=== PATIENT | female | born 1945 | race Two or more races ===

== ENCOUNTER → 2023-01-17 13:05 | Outpatient (BNVA) | payer MEDICARE, SELFPAY | PROVIDERS: PCP Family Medicine; Visit Provider Student in an Organized Health Care Education/Training Program | DX: R50.9 Fever, unspecified (principal) | CPT/HCPCS: 99202 ==

== ENCOUNTER 2023-01-20 14:31 | Outpatient (REF) | payer MEDICARE, SELFPAY ==
[2023-01-20 14:59] LABS: MANUAL DIFF FLAG NO
[2023-01-20 16:05] LABS: Basophils Percent Auto 0.2 % (0-2); Eosinophils Absolute Auto 0.1 X10*3/uL (0.0-0.4); Eosinophils Percent Auto 1.6 % (0-4); Hematocrit 40.4 % (37.0-47.0); Hemoglobin 13.5 g/dl (12.0-16.0); Imm Gran Abs Auto 0.01 X10*3/uL (0.00-0.03); Imm Gran Pct Auto 0.2 % (0.0-0.4); Lymphocytes Absolute Auto 1.1 X10*3/uL (1.2-4.9); Lymphocytes Percent Auto 23.2 % (20-40); Mean Corpuscular HGB Conc 33.4 g/dl (31.0-35.0); Mean Corpuscular Hemoglobin 28.2 pg (27.0-33.0); Mean Corpuscular Volume 84.5 fL (80.0-98.0); Mean Platelet Volume 10.3 fL (9.4-12.3); Monocytes Absolute Auto 0.5 X10*3/uL (0.1-1.2); Monocytes Percent Auto 10.9 % (2-11); Neutrophils Absolute Auto 3.1 x10*3/uL (2.0-8.3); Neutrophils Percent Auto 63.9 % (45-73); Platelet Count 210 X10*3/uL (160-400); Red Blood Count 4.78 X10*6/uL (4.20-5.50); Red Cell Distribution Width 12.3 % (11.0-16.0); White Blood Count 4.9 X10*3/uL (4.8-10.8)
[2023-01-20 16:19] LABS: Estimated Average Glucose 120 mg/dL; Hemoglobin A1c % 5.8 %
[2023-01-20 16:32] LABS: Alanine Aminotransferase 23 U/L (0-31); Albumin Level 4.1 g/dL (3.5-5.0); Alkaline Phosphatase 75 U/L (39-117); Anion Gap 14 (12-20); Aspartate Amino Transferase 23 U/L (5-31); Bilirubin Total 0.7 mg/dL (0.0-1.0); Blood Urea Nitrogen 18 mg/dL (9-16); C Reactive Protein 0.23 mg/dL (< or = 0.50); Calcium 9.3 mg/dL (8.4-10.2); Carbon Dioxide 23 mmol/L (22-29); Chloride 106 mmol/L (96-108); Estimated Glomerular Filt Rate > 60; Glucose Random 83 mg/dL (60-115); Lactate Dehydrogenase 216 U/L (122-220); Potassium 4.1 mmol/L (3.3-5.1); Sodium 139 mmol/L (135-145); Total Protein 7.4 g/dL (6.5-8.0)
[2023-01-20 16:33] LABS: Troponin-I High Sensitivity 5.4 ng/L (<3.5-17.0)
[2023-01-20 16:51] LABS: Erythrocyte Sedimentation Rate 18 MM/HR (0-20)
[2023-01-20 16:59] LABS: Appearance Urine Clear; Color Urine Yellow; Glucose Urine UA Negative (Negative); Leukocyte Esterase Urine Trace (Negative); Nitrite Urine Negative (Negative); Specific Gravity - Urine <= 1.005 (1.005-1.025); UMIC TRIGGER UA YES; Urine Blood Negative (Negative); Urine Ketones Negative (Negative); Urine Protein Negative (Neg-Trace)
[2023-01-20 17:06] LABS: Bacteria Urine None Seen (None Seen); Hyaline Casts Urine 0-2 /LPF (0-2); RBC Urine 0-2 /HPF (0-2); Squamous Epithelial Cell Urine 0-2 /HPF (0-2); WBC Urine 0-5 /HPF (0-5)
[2023-01-20 17:54] LABS: Creatinine Urine 21.86 mg/dL; Total Protein Urine Random < 7 mg/dL (<12)
[2023-01-22 23:20] LABS: TS Negative Control Passed; TS Panel A 0; TS Panel B 1; TS Positive Control Passed; TSpotTB Negative (Negative)
[2023-01-23 08:18] LABS: HBsAGNum1 0.35 S/CO (0.00-0.99); Hepatitis A Antibody IgM 0.15 Index (0-0.79); Hepatitis B Core Antibody Nonreactive (Nonreactive); Hepatitis B Surface Antigen Negative (Negative); ~Hepatitis A Antibody IgM Nonreactive (Nonreactive); ~Hepatitis B Surface Antibody NONREACTIVE (Nonreactive); ~Hepatitis C Antibody Nonreactive (Nonreactive)
[2023-01-23 18:28] LABS: Prot Elec - Albumin 4.1 g/dL (3.8-4.8); Prot Elec - Alpha1 0.3 g/dL (0.2-0.3); Prot Elec - Alpha2 0.7 g/dL (0.5-0.9); Prot Elec - Beta 1 0.5 g/dL (0.4-0.6); Prot Elec - Beta 2 0.4 g/dL (0.2-0.5); Prot Elec - Gamma 1.5 g/dL (0.8-1.7); Prot Elec - Total Protein 7.5 g/dL (6.1-8.1)
[2023-01-24 16:18] LABS: IgA 222 mg/dL (70-320); IgG 1632 mg/dL (600-1540); IgM 171 mg/dL (50-300)
[2023-01-24 21:27] LABS: Anti DNA DS Antibody <1 IU/mL; Antibody to SS-A Antigen <1.0 NEG AI (<1.0 NEG); Antibody to SS-B Antigen <1.0 NEG AI (<1.0 NEG); SM/Ribonucleoprotein Ab <1.0 NEG AI (<1.0 NEG); Smith Protein <1.0 NEG AI (<1.0 NEG)
[2023-01-25 18:39] LABS: Complement C3 138 mg/dL (83-193)
[2023-01-27 04:53] LABS: Aldolase 6.5 U/L (<=8.1)
[2023-01-27 12:52] LABS: Centromere Protein A Ab <11 SI (<11); Centromere Protein B Ab <11 SI (<11); Fibrillarin Ab <11 SI (<11); PM SCL 100 Ab <11 SI (<11); PM SCL 75 Ab <11 SI (<11); RNA Polymerase III RP11 Ab <11 SI (<11); RNA Polymerase III RP155 Ab <11 SI (<11); SCL-70 Extractable Nuclear Ab <11 SI (<11); Th-To Ab <11 SI (<11); U1 SNRNP RNP 70KD <11 SI (<11); U1 SNRNP RNP A <11 SI (<11); U1 SNRNP RNP C <11 SI (<11)
[2023-01-27 13:03] LABS: DNAds, Crithidia Antibody Negative (Negative)
[2023-01-29 16:39] LABS: Cytosolic 5'nuc 1A Ab IgG <5 Units; Ej Ab <11 SI (<11); HMGCR Ab IgG <2 CU (<20); Jo-1 Ab <11 SI (<11); MDA5 Ab <11 SI (<11); Mi-2 alpha Ab <11 SI (<11); Mi-2 beta Ab <11 SI (<11); NXP-2 (MJ) Ab <11 SI (<11); Oj Ab <11 SI (<11); Pl-12 Ab <11 SI (<11); Pl-7 Ab <11 SI (<11); SRP Ab <11 SI (<11); TIF1 gamma Ab <11 SI (<11)
== END 2023-01-20 14:32 | disposition home or self-care (01) ==
LOC: HO.LAB 14:31
PROVIDERS: Visit Provider Student in an Organized Health Care Education/Training Program
DX: Z11.59 Encounter for screening for other viral diseases (principal); Z11.7 Encounter for testing for latent tuberculosis infection; M32.9 Systemic lupus erythematosus, unspecified; M34.9 Systemic sclerosis, unspecified; R73.03 Prediabetes; Z72.89 Other problems related to lifestyle
CPT/HCPCS: 36415; 80053; 81001; 82085; 82550; 82784; 83036; 83516; 83520; 83615; 84156; 84165; 84182; 84484; 85025; 85652; 86140; 86160; 86225; 86235; 86255; 86334; 86481; 86704; 86706; 86709; 86803; 87340

== ENCOUNTER 2023-05-31 14:45 | Outpatient (AMB) | payer MEDICARE, SELFPAY ==
--- NOTE | 2023-05-31 14:50 | A.OFFVIS_ITS ---
Intake Vital Signs 05/31/23 14:51 Height 5 ft 2.5 in Weight 230 lb 6.129 oz BMI 41.5 BP 126/74 Blood Pressure Location Rt brachial Position Sitting Pulse 84 Pulse Source Pulse Oximeter Temp 97.9 F Temp Source Skin Pulse Oximetry (%) 96 Intake Visit Reasons: Neuropathy Intake Note: Pt seen today for follow up. Reports she had labs, emg, and sleep study done with [facility] (will request) Senior Account Manager Required: No Accompanied by: Sister Allergies duloxetine [From Cymbalta] Adverse Reaction (Intermediate, Verified 05/31/23 14:56) Jittery latex Adverse Reaction (Intermediate, Verified 05/31/23 14:56) Itching Seasonal Allergies Adverse Reaction (Intermediate, Verified 05/31/23 14:56) Unknown simvastatin Adverse Reaction (Intermediate, Verified 05/31/23 14:56) Agitated venlafaxine [From Effexor] Adverse Reaction (Intermediate, Verified 05/31/23 14:56) Jittery Medication List - Last Reconciled 05/31/23 by Yin Magallon MD bupropion HCl 1 tab daily orally; alternating every other day with 150mg bupropion HCl 1 tab orally every other day; celecoxib 100 mg PO BID cholecalciferol (vitamin D3) 50 mcg PO DAILY fluticasone propionate 220 mcg/actuation (Flovent HFA) 2 puffs inhalation BID furosemide mg PO PRN hydrochlorothiazide 12.5 mg PO DAILY lorazepam 0.5 mg PO DAILY PRN HPI HPI Comments History of Present Illness Details Patient returns for follow-up after completion of her diagnostic workup. She states that she was evaluated by neurologist (Dr. [place]) who ordered blood work and EMG/NCV of her upper extremity and neck and was told it was unremarkable. She was also referred to a sleep specialist (Dr. franco) and had a home sleep study followed by a lab sleep study, she was told she has central and obstructive sleep apnea. Her CPAP is getting adjusted. States that her temperature in the morning is 97.9 and 99.2 in the evening. She also states towards the end of the day she feels that her had falls into her chest and she has trouble keeping it up. Initial history: This is a 77 year Old female who presents for evaluation of an underlying autoimmune disease. Patient states that starting summer of 2022 she started having low-grade fevers starting at around 99.2 usually late afternoon around 19:00 lasting 2 hours, those can occur 4 days in a week, she received multiple rounds of antibiotics without relief. In the fall of 2021 she started having some difficulty breathing. She ultimately had a CT chest which showed multiple findings including ground-glass opacities she was evaluated by senior tableau developer Dr. Sloan and extensive autoimmune workup was done and according to patient it was positive. She also has been having persistent dry mouth and intermittent dry eyes. Dry mouth improved with special toothpaste and drinking water. She also has been having worsening balance problems states that her ne ck is falling anteriorly. She was referred for a lip biopsy. She will also get rashes on her chest and ankles [facility] Medical History (Updated 05/31/23 @ 15:31 by Yin Magallon MD) Osteoarthritis PTSD (post-traumatic stress disorder) Mild asthma Prediabetes Periodontal disease Surgical History H/O eye surgery Hx of hysterectomy Family History Father No problems noted. Mother Congestive heart failure (CHF) Family/Other Multiple sclerosis Sister Celiac disease Maternal Grandfather Multiple sclerosis Sister ILD (interstitial lung disease) Other Family history of diabetes mellitus Family history of skin cancer Social History Alcohol intake: current Alcohol intake frequency: does not drink Patient Tobacco Use Status: Former Tobacco user Current occupation: semi-retired works as psychotherapist Review of Systems ENT Reports dizziness and Reports dry mouth GI Reports nausea Musc Reports arthralgias, Reports limited range of motion, Reports muscle weakness and Reports stiffness Neuro Reports dizziness Physical Exam Vital Signs: Last Vital Signs Temp 97.9 F 05/31/23 14:51 Pulse 84 05/31/23 14:51 BP 126/74 05/31/23 14:51 Pulse Ox 96 05/31/23 14:51 BMI result Body Mass Index 41.5 Const General: cooperative and healthy appearing Nutritional Appearance: obese morbidly obese Orientation/consciousness: patient oriented x3 Limitations: ambulation with cane HEENT Head: Yes normocephalic and Yes atraumatic Resp Effort & Inspection: normal respiratory effort and able to speak in complete sentences Auscultation: clear to auscultation bilaterally Cardio Rate: regular rate Neuro General: patient oriented x3 Extrem Other: Limited range of motion both shoulders, bilateral shoulder pain with passive shoulder abduction No swollen or tender joints of both hands. Mild osteoarthritic changes of both hands Normal nailfold capillaroscopy No dermatomyositis skin rashes Bilateral knee pain with full flexion Results Reviewed Results Reviewed: Labs and notes by Dr. Jackson Labs 07/2022 CMP unremarkable except for mildly elevated AST at 38 (<37) ESR 31 (<30) G6PD 9.7 (8.0-11.9) IL-2 receptor 812.8 (175-858) CCP negative? RF 21.6 (<14)?? CRP <3.0 (0-4.0) C4 28 (12-39) C3 125 (81-157) CBC unremarkable Labs 06/18? RF 16.5(<14) CRP 4.2 (<3.0) CBC unremarkable ESR 39 C4-11 (12-39) C3 51 (81-157) Labs 07/19? ESR 20, negative ANCA/PR3/MPO, negative AUSTEN panel including SSa/SSb, weakly positive hypersensitivity pneumonitis panel PFTs 07/2022? Normal spirometry and lung volumes with mildly reduced diffusion capacity of 61%.? 6 minute walk without desaturations but reduced ambulation only 191 m FEV1 is normal at 112%.? FVC is 99% predicted.? FEV1/FVC ratio is normal at 78% TLC is 84% predicted low normal DLCO 61% predicted Chest CT 08/18 with further decrease in previously noted ground-glass opacities without generalized interstitial changes Initial consultation 05/2022 Chest x-ray suggestive of diffuse pneumonitis.? Echocardiogram unremarkable comp chest CT 06/18 demonstrating Few trace focal areas of ground-glass opacity, most likely from infectious/inflammatory and which may reflect nearly resolved interstitial pneumonitis.? No findings to suggest an ongoing diffuse interstitial process Older sister with ILD (?IPF) s/p lung transplant at age 68, lasted 11 years.? in August 2021 CT chest without contrast 05/2022? Lungs:? Central airways are patent.? No focal consolidation.? Few trace focal areas of ground-glass opacity for example in the left upper lobe on 4:46 left lower lobe not do? Pleura:normal.? No pleural effusion or pneumothorax.?? Mediastinum: normal.? No thyroid nodules.? Mitral annular calcification.?? Lymph nodes :normal.? No enlarged supraclavicular, axillary mediastinal or hilar lymph nodes.?? Upper abdomen.: Normal no abnormality detected in the visualized upper abdomen.? Absence of intravenous contrast limits sensitivity for detected solid organ findings.?? Chest wall: normal.? No chest wall mass Bones degenerative changes.? No suspicious lytic or blastic lesions.?? Impression: few trace focal areas of ground-glass opacity, most likely infectious/inflammatory and which may reflect nearly resolved interstitial pneumonia.? No findings to suggest an ongoing diffuse interstitial proces NIKO 1-80 speckled Assessment & Plan Assessment & Plan (1) NIKO positive: Code(s): R76.8 - Other specified abnormal immunological findings in serum Plan: This is a 77-year-old female presents for evaluation of multiple symptoms.? At all started back in summer of 2021 including low-grade fevers, generalized body aches and weakness, poor balance.? She has a sister who from IPF.? She was evaluated by Dr. Jackson labs showed mildly elevated inflammatory markers, borderline positive rheumatoid factor, positive NIKO, low C3, low C4, CT chest showed few ground-glass opacities.? Patient received 1 week course of prednisone, repeat labs showed improvement in ground-glass opacities.? Normalization of C3/C4. Her symptoms improved Since then patient has had no new symptoms.? Patient has mildly elevated CPK at 310 with no proximal muscle weakness on exam.? Myositis panel is negative.? And per patient EMG/NCV done by neurologist was unremarkable. Patient is currently getting workup for obstructive sleep apnea, ENT for balance issues. Repeat labs 12/2022 showed mildly elevated CPK at 03:10 with normal aldolase, normal LDH, normal inflammatory markers. Normal dsDNA no and complements I do not see any evidence of a systemic autoimmune rheumatic disease upon my evaluation today. Continue to follow-up with Pulmonary given positive family history of IPF and history of interstitial changes on CT chest Follow-up as needed for any new or worsening symptoms Plan I spent 47 minutes reviewing patient's chart, evaluating patient counseling patient and documenting in the chart Coding Level of Care Code Est Pt Level 5 (60912) Diagnoses NIKO positive R76.8
[2023-05-31 14:51] VITALS: BP 126/74; PULSE 84; TEMP 36.6; O2SAT 96; BMI 41.5
== END 2023-05-31 15:26 | disposition home or self-care (01) ==
PROVIDERS: PCP Family Medicine; Visit Provider Student in an Organized Health Care Education/Training Program
DX: R76.8 Other specified abnormal immunological findings in serum (principal)
CPT/HCPCS: 99215

== ENCOUNTER → 2023-05-31 14:45 | Outpatient (BNVA) | payer MEDICARE, SELFPAY | PROVIDERS: PCP Family Medicine; Visit Provider Student in an Organized Health Care Education/Training Program | DX: R76.8 Other specified abnormal immunological findings in serum (principal) | CPT/HCPCS: 99212 ==